=== PATIENT | male | born 1975 | race Asian ===

== ENCOUNTER 2022-12-19 06:35 | Outpatient (CLI) | payer BC ==
[2022-12-19 08:10] LABS: PLATELET COUNT 212 K/uL (142-355)
[2022-12-19 08:18] LABS: POTASSIUM 4.4 mmol/L (3.6-5.2)
== END 2022-12-19 18:32 | disposition home or self-care (01) ==
LOC: LABW 06:35
PROVIDERS: ATTEND Nurse Practitioner Family
DX: Z00.00 Encounter for general adult medical examination without abnormal findings (principal); Z79.899 Other long term (current) drug therapy; R53.83 Other fatigue; E11.9 Type 2 diabetes mellitus without complications
CPT/HCPCS: 36415; 80053; 80061; 83036; 84443; 85027